=== PATIENT | male | born 1970 | race Two or more races ===

== ENCOUNTER 2017-03-11 07:03 | Emergency (ER) | payer OTHER ==
--- NOTE | ~2017-03-11 | ER ---
PATIENT'S NAME: [facility] AGE: 46 Y [address] ROOM: [place] [id number] LOCATION: [facility] ADMIT DATE: 03/11/2017 ER/Outpatient Report DISCHARGE DATE: 03/11/2017 FAMILY PHYSICIAN: Jordan Aranda MD ATTENDING PHYSICIAN: Dinorah Luis TIME OF ARRIVAL: 0703 hours. TIME OF SEEN: 0717 hours. IDENTIFICATION: A 46-year-old male. CHIEF COMPLAINT: Eye irritation. HISTORY OF PRESENT ILLNESS: The patient squished a spider this morning, and with that, it squirted back into his right eye at approximately 6:00 a.m. He developed redness and swelling. No itching. No pain. No other problems or concerns. He flushes eye at home. ALLERGIES: NO KNOWN DRUG ALLERGIES. CURRENT MEDICATIONS: Denies. MEDICAL PROBLEMS: Denies. He does not wear glasses or contacts. He is a body welder. IMMUNIZATIONS: His tetanus is not current. SOCIAL HISTORY: The patient lives here in [place]. Tobacco use, denies. Alcohol use, denies. Drug use, denies. PHYSICAL EXAMINATION: HEAD: Normocephalic atraumatic. EYES: Pupils are equal and reactive to light and accommodation. Extraocular movements intact. Right eye has some periorbital edema. Conjunctiva is injected and irritated. He has lot of conjunctival edema. No clotting or PATIENT'S NAME: [facility] AGE: 46 Y [address] ROOM: [place] [id number] LOCATION: [facility] ADMIT DATE: 03/11/2017 ER/Outpatient Report DISCHARGE DATE: 03/11/2017 FAMILY PHYSICIAN: Jordan Aranda MD ATTENDING PHYSICIAN: Dinorah Luis positive fluorescein stain of the cornea. No evidence of foreign body. The eye was flushed. Visual acuity right eye 20/30, left eye 20/40, both eyes 20/30. IMPRESSION: Allergic conjunctivitis. PLAN: Benadryl 25 to 50 mg q.6 hours p.r.n. swelling, cool compresses. Follow up with Dr. Vidal in 1 to 2 days. Follow up sooner if any problems or concerns. Tetanus was boosted. I did discuss this with Dr. Vidal. MD CLARISSA CARSON/carlos manuel /[id number] CC: MD Narcisa Keller DO d: 03/11/17 1237 t: 03/11/17 1250, OUTPATIENT REPORT
== END 2017-03-11 08:03 | disposition disaster alternative care site (69) ==
LOC: GMED 07:03
DX: H10.11 Acute atopic conjunctivitis, right eye (principal); Z23 Encounter for immunization